=== PATIENT | female | born 1960 | race Caucasian/White ===

== ENCOUNTER 2016-06-20 07:49 | Emergency (ER) | payer OTHER ==
[2016-06-20 07:56] VITALS: BP 139/75; PULSE 81; RESP 16; TEMP 97.3; O2SAT 97
[2016-06-20] MEDS ORDERED: LETS SOLN TOPICAL 1 EA SYR TP ONE (08:14)
[2016-06-20] MEDS ORDERED: AMOXICILLIN/CLAVULANATE POT 875/125 MG TAB PO ONE ×2 (08:48→08:50)
--- NOTE | 2016-06-20 09:34 | UCPHY ---
H & P Time Seen by Provider: 06/20/16 07:57 Patient Type: New HPI/ROS: 55-year-old female presents complaining of dog bite to her left arm. It was her own dog and she was breaking up a fight. She is on a blood thinner. Review of systems General no fever no chills no weakness HEENT no eye pain no eye discharge. No eye redness, no sore throat Respiratory no cough, no shortness of breath Cardiac no chest pain, no peripheral edema GI no abdominal pain, no diarrhea, no constipation, no nausea, no vomiting no flank pain, no hematuria, no dysuria Musculoskeletal no myalgias, no joint pain Heme no easy bruising, no easy bleeding Endo no polyuria, no polydipsia Skin no rashes, no pruritus Neuro no syncope, no dizziness, no headaches Psych is no suicidal ideation, no homicidal ideation Past Medical/Surgical History: Currently on long-term anticoagulant Social History: No alcohol no drugs Smoking Status: Never smoked Physical Exam: Alert and oriented in no acute distress nontoxic appearance, afebrile Atraumatic normocephalic Neck no JVD Lungs clear to auscultation, no respiratory distress Heart regular rate and rhythm Extremities no cyanosis clubbing edema Left upper arm posterior aspect mid upper arm Gaping wound v-shaped approximately 5 cm, and 1 small wound approximately 1 cm, fatty tissue protruding from gaping wound Constitutional: Initial Vital Signs Temperature (C) 36.3 C 06/20/16 07:53 Heart Rate 81 06/20/16 07:53 Respiratory Rate 16 06/20/16 07:53 Blood Pressure 139/75 H 06/20/16 07:53 O2 Sat (%) 97 06/20/16 07:53 O2 Delivery Mode Room Air Allergies/Adverse Reactions: SEASONAL Allergy (Mild, Uncoded 06/20/16 07:52) SNEEZY, RUNNY NOSE Home Medications: Medication Instructions Recorded Aspirin [Aspirin 81mg (OTC)] 81 mg PO DAILY 08/19/12 Benzoyl Peroxide/Hydrocortison 25 gm TP DAILY PRN 08/19/12 [Vanoxide-Hc Lotion] Cetirizine HCl 10 mg PO DAILY 08/19/12 Cholecalciferol Vit D3 [Vitamin D3 2,000 units PO DAILY 08/19/12 2000 units (OTC)] Clocortolone Pivalate [Cloderm] 15 gm TP DAILY PRN 08/19/12 Estradiol [ESTRADIOL] 0.5 mg PO DAILY 08/19/12 Folic Acid/Multivit-Minerals [One 0.4 mg PO DAILY 08/19/12 Daily Womens 50 Plus Tab] Hydrocortisone Butyrate [Locoid] 15 gm TP DAILY PRN 08/19/12 Crane-3 Fatty Acids/Fish Oil [Fish 1 each PO DAILY 08/19/12 Oil 1,200 mg Softgel] Sertraline HCl [Zoloft 50mg (RX)] 50 mg PO DAILY 08/19/12 Simvastatin [Zocor 20 mg (RX)] 20 mg PO DAILY18 08/19/12 Valsartan/Hydrochlorothiazide 1 each PO DAILY 08/19/12 [Diovan Hct 320-12.5 mg Tab] Amoxicillin/Clavulanate Pot 875 mg PO BID #14 tab 06/20/16 [Augmentin 875 MG TAB (*)] Medical Decision Making Procedures: Procedure note-laceration The wound was irrigated with copious amounts of saline. Lidocaine 1% was used for local anesthetic. Six time 4-0 Ethilon simple interrupted sutures were placed. Patient tolerated procedure well. ED Course/Re-evaluation: Patient seen and evaluated for dog bite to left upper arm. Wound is gaping with a large amount of subq fat protruding. Irrigated copiously. Sutured repair Patient placed on antibiotics Advised to return for any signs of infection including swelling redness drainage. - Data Points Medications Given: Discontinued Medications Amoxicillin/Clavulanate Potassium (Augmentin 875mg) 875 mg PO EDNOW ONE PRN Reason: Protocol Stop: 06/20/16 08:51 Last Admin: 06/20/16 08:50 Dose: 875 mg Departure - Departure Disposition: Home, Routine, Self-Care Clinical Impression: Dog bite of extremity Condition: Good Instructions: Animal Bite (ED) Additional Instructions: Return immediately for any signs of infection. Augmentin twice a day for 7 days. Sutures out in 9-10 days. Referrals: Gregoria Garcia MD [Primary Care Provider] - As per Instructions Prescriptions: Amoxicillin/Clavulanate Pot [Augmentin 875 MG TAB (*)] 875 mg PO BID #14 tab - PQRS PQRS Measurement: na
--- NOTE | 2016-06-23 15:06 | PQFORM ---
PHYSICIAN QUERY FORM Needs Your Response This query form is being sent to you to assure this patient record is coded properly. Please respond to the question below: LEATHER REPAIRER QUESTION: DR. Mireles, This patient presented to the [facility] Urgent care for treatment of a dog bite , causing a laceration of the extremity. For correct coding and reporting purposes, could you please give us a detailed description of the wound, location, and closure method? Thank You, Carmelita Mcclendon, [employer] [phone] INSTRUCTIONS FOR RESPONSE: Answer question by clicking on the "Edit Document" button. Move cursor to area below the stars. When complete, hit "Save." Click on the "Sign" button, then click "Sign" again. Type in your PIN and hit "Enter." MTDD
== END 2016-06-20 09:50 | disposition home or self-care (01) ==
LOC: CED 07:49
PROC: 0HQCXZZ Repair Left Upper Arm Skin, External Approach (ICD-10-PCS; principal; 2016-06-20)
DX: S41.152A Open bite of left upper arm, initial encounter (principal); W54.0XXA Bitten by dog, initial encounter; Z79.01 Long term (current) use of anticoagulants
CPT/HCPCS: G0463-PO

== ENCOUNTER → 2017-02-04 | Outpatient (CLI) | payer OTHER | LOC: BMCIMAGING 08:22 | PROVIDERS: ATTEND Internal Medicine | DX: Z12.31 Encounter for screening mammogram for malignant neoplasm of breast (principal); Z79.890 Hormone replacement therapy | CPT/HCPCS: G0202 ==

== ENCOUNTER → 2017-02-10 | Outpatient (CLI) | payer OTHER | LOC: BMCIMAGING 10:13 | PROVIDERS: ATTEND Internal Medicine | DX: Z13.820 Encounter for screening for osteoporosis (principal); R92.8 Other abnormal and inconclusive findings on diagnostic imaging of breast; Z78.0 Asymptomatic menopausal state; Z79.890 Hormone replacement therapy | CPT/HCPCS: G0206 ==